=== PATIENT | male | born 1960 | race Caucasian/White ===

== ENCOUNTER 2017-11-27 05:27 | Inpatient (IN) | payer OTHER ==
[~2017-11-27] VITALS: Ht 167.6 cm; Wt 81.1 kg
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
[2017-11-27 05:52] VITALS: BP 124/70; PULSE 81; RESP 18; O2SAT 98
[2017-11-27] MEDS ORDERED: MORPHINE SULFATE 4 MG/ML INJ IV PUSH PRN (06:30)
[2017-11-27] MEDS ORDERED: ONDANSETRON HCL 4 MG/2 ML VIAL IV PUSH PRN (06:30)
[2017-11-27] MEDS ORDERED: SODIUM CHLORIDE 0.9% FLUSH 10 ML FLUSH IV FLUSH PRN (06:30)
[2017-11-27] MEDS ORDERED: ENALAPRILAT 1.25 MG/ML VIAL IV PUSH PRN (06:30)
[2017-11-27] MEDS ORDERED: ACETAMINOPHEN/HYDROcodone 325 MG/5 MG TAB PO PRN ×2 (06:30)
[2017-11-27] MEDS ORDERED: ACETAMINOPHEN 325 MG TAB PO PRN (06:30)
[2017-11-27 06:41] LABS: AUTOMATED NEUTROPHIL # 6.8 TH/MM3 (1.8-7.7); BASOPHIL % 0.3 % (0.0-2.0); EOSINOPHIL # 0.2 TH/MM3 (0-0.4); EOSINOPHIL % 1.9 % (0.0-4.0); HEMATOCRIT 39.9 % (39.0-51.0); HEMOGLOBIN 13.7 GM/DL (13.0-17.0); LYMPHOCYTE # 0.6 TH/MM3 (1.0-4.8); MEAN CELL VOLUME 89.9 FL (80.0-100.0); MEAN CORPUSCULAR HEMOGLOBIN 30.7 PG (27.0-34.0); MEAN CORPUSCULAR HGB CONC 34.2 % (32.0-36.0); MEAN PLATELET VOLUME 8.3 FL (7.0-11.0); MONO % 12.2 % (0.0-8.0); MONOCYTE # 1.1 TH/MM3 (0-0.9); NEUT % 78.6 % (16.0-70.0); PLATELET COUNT 152 TH/MM3 (150-450); RED BLOOD COUNT 4.44 MIL/MM3 (4.50-5.90); RED CELL DISTRIBUTION WIDTH 13.4 % (11.6-17.2); WHITE BLOOD COUNT 8.6 TH/MM3 (4.0-11.0)
[2017-11-27] MEDS: SODIUM CHLOR 0.9% 1000 ML INJ 1,000 ML IV SCH ×2 (07:08→18:42)
[2017-11-27] MEDS ORDERED: PANTOPRAZOLE SODIUM 40 MG VIAL IVP SCH (08:00)
[2017-11-27] MEDS: DOCUSATE SODIUM 100 MG CAP PO SCH ×2 (09:00→20:53)
[2017-11-27 09:57] LABS: BICARBONATE 26.2 MEQ/L (21.0-32.0); CALCIUM 9.2 MG/DL (8.5-10.1); CREATININE 0.92 MG/DL (0.60-1.30)
[2017-11-27 10:15] VITALS: BP 121/71; PULSE 83; RESP 18; O2SAT 97
[2017-11-27] MEDS: BACITRACIN TOP OINT 15 GM TUBE TOP SCH ×2 (10:22→20:53)
[2017-11-27 14:43] VITALS: BP 120/59; PULSE 82; RESP 16; O2SAT 98
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
[2017-11-27 18:34] VITALS: BP 118/71; PULSE 77; RESP 18; TEMP 98.4; O2SAT 95
[2017-11-27 20:00] VITALS: BP 129/71; PULSE 85; RESP 20; TEMP 98.5; O2SAT 96
[2017-11-28] VITALS: BP 107/59; PULSE 66; RESP 20; TEMP 97.7; O2SAT 96
[2017-11-28] MEDS: SODIUM CHLOR 0.9% 1000 ML INJ 1,000 ML IV SCH (02:25)
[2017-11-28 07:35] LABS: HEMATOCRIT 36.4 % (39.0-51.0); HEMOGLOBIN 12.3 GM/DL (13.0-17.0)
[2017-11-28 08:00] VITALS: BP 122/69; PULSE 78; RESP 17; TEMP 98.2; O2SAT 97
[2017-11-28 08:04] LABS: BICARBONATE 27.4 MEQ/L (21.0-32.0); CALCIUM 7.9 MG/DL (8.5-10.1); CREATININE 1.01 MG/DL (0.60-1.30)
[2017-11-28] MEDS: DOCUSATE SODIUM 100 MG CAP PO SCH (08:23)
[2017-11-28] MEDS: BACITRACIN TOP OINT 15 GM TUBE TOP SCH (08:23)
[2017-11-28] MEDS ORDERED: IOHEXOL 350 MG/ML 10 ML VIAL (for RAD DIAG) IVCONTRAST ONE (08:53)
--- NOTE | 2017-11-28 09:00 | RADRPT ---
EXAM DATE/TIME: 11/28/2017 08:41 [facility] COMPARISON: No previous studies available for comparison. INDICATIONS : Follow up renal laceration IV CONTRAST: 94 cc Omnipaque 350 (iohexol) IV ORAL CONTRAST: No oral contrast ingested. RADIATION DOSE: 6.97 CTDIvol (mGy) MEDICAL HISTORY : None SURGICAL HISTORY : Tonsillectomy. ENCOUNTER: Subsequent ACUITY: 2 days PAIN SCALE: 4/10 LOCATION: Left Kidney TECHNIQUE: Volumetric scanning of the abdomen and pelvis was performed. Using automated exposure control and ad justment of the mA and/or kV according to patient size, radiation dose was kept as low as reasonably achievable to obtain optimal diagnostic quality images. DICOM format image data is available electro nically for review and comparison. FINDINGS: Minimal parenchymal changes both lung base isn't, progressed in the interval. Moderate coronary calcifications in the LAD The liver and gallbladder are unremarkable Pancreas and spleen appear normal The right kidney is normal Again seen is the laceration to the left kidney the small amount of perinephric fluid present. This would be grade 3. Induration does extend beyond this fashion. There is no significant free fluid Pelvic contents are unremarkable Review of bone windows reveals mild degenerative changes. CONCLUSION: Renal laceration as above left kidney. No other significant findings. The kidney is symmetrically perfused. Aryan Streeter MD FACR on November 28, 2017 at 8:55 Board Certified Radiologist. This report was verified electronically.
[2017-11-28 12:00] VITALS: BP 130/80; PULSE 74; RESP 17; TEMP 98; O2SAT 96
[2017-11-28] MEDS ORDERED: CALC12502 PO (14:15)
[2017-11-28] MEDS ORDERED: KRIL1CAP (14:15)
[2017-11-28] MEDS ORDERED: DHEA50TA PO (14:15)
[2017-11-28] MEDS ORDERED: MAGN100T2 PO (14:15)
[2017-11-28] MEDS ORDERED: MULTTAB67 PO (14:15)
[2017-11-28] MEDS ORDERED: CHOL5000 PO (14:15)
[2017-11-28] MEDS ORDERED: ZINC220C3 PO (14:15)
[2017-11-28] MEDS ORDERED: CALCIUM CARBONATE 1.25 GM (CA 500 MG) TAB PO SCH (15:30)
[2017-11-28] MEDS ORDERED: ZINC SULFATE 220 MG CAP PO SCH (15:30)
[2017-11-28] MEDS ORDERED: CHOLECALCIFEROL (VIT D3) 5000 UNIT CAP PO SCH (15:30)
[2017-11-28 15:55] LABS: HEMATOCRIT 37.7 % (39.0-51.0)
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
== END 2017-11-28 19:00 | disposition home or self-care (01) | DRG 700 ==
LOC: NEPE 05:27 → NEDA 06:01 → UNDOADMIN 06:01 → NEDA 06:01 → OBSVTOIN 06:30 → NEDA 09:58 → N07A 17:43
PROVIDERS: ADMIT Surgery; ATTEND Surgery
DX: S37.052A Moderate laceration of left kidney, initial encounter (principal); V19.88XA Pedal cyclist (driver) (passenger) injured in other specified transport accidents, initial encounter; Y93.55 Activity, bike riding; Y92.89 Other specified places as the place of occurrence of the external cause; Y99.8 Other external cause status
CPT/HCPCS: 74177; 80048; 85014; 85018; 85025; 94150; 99283; C9113; J7030; Q9967